=== PATIENT | female | born 1970 | race Caucasian/White ===

== ENCOUNTER 2017-11-12 11:06 | Emergency (ER) | payer OTHER ==
[~2017-11-12] VITALS: Ht 157.5 cm; Wt 65.5 kg
[2017-11-12 11:28] VITALS: BP 136/94
== END 2017-11-12 13:54 | disposition home or self-care (01) ==
LOC: EME 11:06
DX: M54.9 Dorsalgia, unspecified (principal); Z88.5 Allergy status to narcotic agent; Z88.1 Allergy status to other antibiotic agents; Z88.6 Allergy status to analgesic agent

== ENCOUNTER → 2018-05-14 | Outpatient (CLI) | payer OTHER | END | disposition home or self-care (01) | LOC: NUC 11:32 | DX: R10.9 Unspecified abdominal pain (principal) | CPT/HCPCS: 78226; A9537 ==